=== PATIENT | female | born 1975 | race Caucasian/White ===

== ENCOUNTER 2017-11-01 09:54 | Emergency (ER) | payer OTHER ==
--- NOTE | 2017-11-01 10:25 | UC ---
Hand/Wrist HPI - HPI Summary HPI Summary: While at work this morning patient was cleaning a sink and noted a pop in her right wrist. She states that she had no pain at the time; however, A short time later when she went to mop and she had pain. she gestures to the volar surface of her right wrist. She notes that her fingers felt a little numb as well. She denies any weakness to the hand. She denies any other injuries and offers no other complaints. - History Of Current Complaint Stated Complaint: WC RIGHT WRIST INJURY Time Seen by Provider: 11/01/17 10:13 Hx Obtained From: Patient Hx Last Menstrual Period: 10/27/17 Onset/Duration: Sudden Onset Pain Intensity: 8 Aggravating Factor(s): Flexion Alleviating Factor(s): Rest Associated Signs And Symptoms: Positive: Numbness/Tingling. Negative: Swelling , Redness, Bruising, Weakness - Allergies/Home Medications Allergies/Adverse Reactions: Allergies Allergy/AdvReac Type Severity Reaction Status Date / Time No Known Allergies Allergy Verified 11/01/17 10:17 Home Medications: Home Medications Acetaminophen [Tylenol Extra Strength] 500 mg PO Q6HR 11/01/17 [History Confirmed 11/01/17] PMH/Surg Hx/FS Hx/Imm Hx - Additional Past Medical History Additional PMH: psoriasis - Surgical History Surgical History: Yes Surgery Procedure, Year, and Place: tubaligation, gallbladder removed - Social History Occupation: Employed Full-time Lives: With Family Alcohol Use: Rare Substance Use Type: None Smoking Status (MU): Light Every Day Tobacco Smoker Type: Cigarettes - Immunization History Vaccination Up to Date: Yes Review of Systems Constitutional: Negative Skin: Negative Eyes: Negative ENT: Negative Respiratory: Negative Cardiovascular: Negative Gastrointestinal: Negative Genitourinary: Negative Motor: Negative Neurovascular: Negative Musculoskeletal: Other: - R wrist pain Neurological: Negative Psychological: Negative Is Patient Immunocompromised?: No All Other Systems Reviewed And Are Negative: Yes Physical Exam Triage Information Reviewed: Yes Appearance: Well-Appearing Vital Signs: Initial Vital Signs Temp 98.8 F 11/01/17 10:12 Pulse 85 11/01/17 10:12 Resp 18 11/01/17 10:12 BP 116/76 11/01/17 10:12 Pulse Ox 100 11/01/17 10:12 Vital Signs Reviewed: Yes Eyes: Positive: Conjunctiva Clear ENT: Positive: Normal ENT inspection Neck: Positive: Supple Respiratory: Positive: Lungs clear, Normal breath sounds Cardiovascular: Positive: RRR, No Murmur Abdomen Description: Positive: Nontender, No Organomegaly, Soft Bowel Sounds: Positive: Present Musculoskeletal: Positive: Other: - Right upper extremity when compared to left shows no gross deformity swelling or discoloration. Right volar wrist radial side is tender to palpation. The rest of the elbow forearm wrist and hand are nontender. The wrist has full range of motion; however, patient notes worsening discomfort with flexion at the wrist especially against resistance. The hand has full sensory vascular and motor function-including sensation to the radial median and ulnar nerve distribution. There is no bony deformity or tenderness at the snuffbox is nontender. Neurological: Positive: Alert Psychological: Positive: Age Appropriate Behavior Skin Exam: Normal, Other - plaques c/w psoriasis Hand/Wrist Course/Dx - Course Course Of Treatment: No concern for fracture or dislocation. Exam is consistent with sprain to the right wrist. We will splint and patient will take OTC Tylenol per labeled for pain as she is not able to tolerate anti- inflammatories. We'll give her limited duty and orthopedic follow-up in one week. - Differential Dx/Diagnosis Provider Diagnoses: Sprain R wrist Discharge - Sign-Out/Discharge Documenting (check all that apply): Discharge/Admit/Transfer - Discharge Plan Condition: Stable Disposition: HOME Patient Education Materials: Wrist Sprain (ED) Forms: *Work Release Referrals: Grabiel Machado [Primary Care Provider] - If Needed Freddy Ang MD [Medical Doctor] - 7 Days Additional Instructions: WRIST SPLINT DURING WORK/DAY UNTIL CLEARED. - Billing Disposition and Condition Condition: STABLE Disposition: Home
== END 2017-11-01 10:36 | disposition home or self-care (01) ==
LOC: UCCORT 09:54
DX: S63.501A Unspecified sprain of right wrist, initial encounter (principal); X58.XXXA Exposure to other specified factors, initial encounter; Y93.E9 Activity, other interior property and clothing maintenance; Y92.000 Kitchen of unspecified non-institutional (private) residence as the place of occurrence of the external cause; F17.210 Nicotine dependence, cigarettes, uncomplicated
CPT/HCPCS: 99202; G0463

== ENCOUNTER 2019-07-16 09:19 | Emergency (ER) | payer SELFPAY ==
[2019-07-16 09:37] VITALS: BP 120/76
--- NOTE | 2019-07-16 10:14 | UC ---
Knee Pain HPI - HPI Summary HPI Summary: 43 yo female with right knee pain x 5 days twisted it playing with grand child medial knee pain which worsens with wt bearing knee anna - History of Current Complaint Chief Complaint: UCLowerExtremity Stated Complaint: RIGHT KNEE PAIN/INJURY Time Seen by Provider: 07/16/19 09:54 Hx Obtained From: Patient Hx Last Menstrual Period: 07/05/19 Onset/Duration: Sudden Onset, Still Present Severity Initially: Moderate Severity Currently: Severe Location Of Injury: see image Pain Intensity: 9 Pain Scale Used: 0-10 Numeric Character: Sharp, Aching, Throbbing, Spasmodic Aggravating Factor(s): Weight Bearing, Prolonged Standing Alleviating Factor(s): Rest Associated Signs And Symptoms: Positive: Swelling Able to Bear Weight: Yes Legs: 1 - pain here - Allergies/Home Medications Allergies/Adverse Reactions: Allergies Allergy/AdvReac Type Severity Reaction Status Date / Time No Known Allergies Allergy Verified 07/16/19 09:31 Home Medications: Home Medications Acetaminophen [Tylenol Extra Strength] 1,000 mg PO Q6HR PRN 11/01/17 [History Confirmed 07/16/19] PMH/Surg Hx/FS Hx/Imm Hx Previously Healthy: Yes - Surgical History Surgical History: Yes Surgery Procedure, Year, and Place: tubal ligation. cholecystectomy - Family History Known Family History: Positive: Hypertension - Social History Alcohol Use: None Substance Use Type: None Smoking Status (MU): Light Every Day Tobacco Smoker Type: Cigarettes Amount Used/How Often: 1/2 ppd Cessation Counseling: Patient Advised to Stop - Immunization History Vaccination Up to Date: Yes Review of Systems All Other Systems Reviewed And Are Negative: Yes Constitutional: Positive: Negative Skin: Positive: Negative Eyes: Positive: Negative ENT: Positive: Negative Respiratory: Positive: Negative Cardiovascular: Positive: Negative Gastrointestinal: Positive: Negative Genitourinary: Positive: Negative Motor: Positive: Negative Neurovascular: Positive: Negative Musculoskeletal: Positive: Arthralgia - right knee Neurological/Mental Status: Positive: Negative Psychological: Positive: Negative Physical Exam Triage Information Reviewed: Yes Appearance: Well-Appearing, No Pain Distress, Well-Nourished Vital Signs: Initial Vital Signs Temp 98.8 F 07/16/19 09:32 Pulse 75 07/16/19 09:32 Resp 13 07/16/19 09:32 BP 120/76 07/16/19 09:32 Pulse Ox 100 07/16/19 09:32 Vital Signs Reviewed: Yes Eyes: Positive: Conjunctiva Clear ENT: Positive: Hearing grossly normal. Negative: Nasal congestion, Nasal drainage, Trismus, Muffled voice Dental Exam: Normal Neck: Positive: Supple, Nontender Respiratory: Positive: Lungs clear, Normal breath sounds, No respiratory distress, No accessory muscle use Cardiovascular: Positive: RRR, No Murmur Musculoskeletal: Positive: Other: - see image, stable right knee/painful ROM/ tender medial joint line/small effusion Neurological: Positive: Alert Psychological Exam: Normal Skin Exam: Other - psoriatic plaques Diagnostics - Radiology No standard instances Radiology Interpretation Completed By: Radiologist Summary of Radiographic Findings: small effusion Knee Pain Course/Dx - Differential Dx/Diagnosis Provider Diagnosis: Right knee injury Discharge ED - Sign-Out/Discharge Documenting (check all that apply): Patient Departure All imaging exams completed and their final reports reviewed: Yes - Discharge Plan Condition: Stable Disposition: HOME Patient Education Materials: Knee Pain (ED), Knee Immobilizer (ED) Forms: *Work Release Referrals: Freddy Ang MD [Medical Doctor] - Additional Instructions: rest ice advil or aleve - Billing Disposition and Condition Condition: STABLE Disposition: Home
== END 2019-07-16 10:49 | disposition home or self-care (01) ==
LOC: UCCORT 09:19
DX: S89.91XA Unspecified injury of right lower leg, initial encounter (principal); X50.9XXA Other and unspecified overexertion or strenuous movements or postures, initial encounter; Y93.89 Activity, other specified; Y92.9 Unspecified place or not applicable; F17.210 Nicotine dependence, cigarettes, uncomplicated
CPT/HCPCS: 99212; G0463